=== PATIENT | female | born 2000 | race Caucasian/White ===

== ENCOUNTER 2022-02-06 11:42 | Emergency (ER) | payer OTHER, SELFPAY ==
[2022-02-06 12:00] VITALS: BP 123/70; PULSE 82; RESP 18; TEMP 36.9; O2SAT 100
--- NOTE | 2022-02-06 12:49 | ED.FEMALEGU ---
HPI - Female Genitourinary General Chief complaint: Urogenital-Female Stated complaint: Possible UTI History of Present Illness HPI Narrative: This is a 21-year-old female who presented to our urgent care with complaints urinary tract infection symptoms such as burning frequency and urgency that she has had since Thursday. Patient had not taken in the home to relieve her symptoms. Patient able to tolerate all meals , slept well and ambulate at baseline. Patient denies SOB, CP, palpitation, extremity numbness, lightheadness, dizziness, constipation, diarrhea, or chills or fever. Patient agree that they are ready for discharge and discharge plan. Related Data Allergies Allergy/AdvReac Type Severity Reaction Status Date / Time No Known Allergies Allergy Verified 02/06/22 11:51 Review of Systems Review of Systems: A 14 organ system Review of Systems was performed and pertinent positives included in the HPI, otherwise remaining ROS is negative. Exam Narrative: GENERAL: This is a well-nourished, well-developed patient, in no apparent distress. HEAD: normocephalic, atraumatic. EYES: PERRL. Sclera clear/white. Vision is grossly intact. EARS: External ears normal, auditory canals clear and without drainage, TMs normal without perforation. Hearing grossly intact. NOSE: External nose normal with no obvious nasal discharge, nares without redness, no rhinorrhea. THROAT: Mucous membranes moist, posterior pharynx clear. NECK: Neck supple, non-tender without lymphadenopathy, masses or thyromegaly. CARDIOVASCULAR: Regular rate and rhythm without murmurs, gallops, or rubs. RESPIRATORY: Clear to auscultation. Breath sounds equal bilaterally. No wheezes, rales, or rhonchi. GASTROINTESTINAL: Abdomen soft, non-tender, nondistended. Bowel sounds are active. No hepato-splenomegaly, or palpable masses. No guarding. SKIN: warm, intact with no suspicious lesions or rash, good texture and turgor. NEURO: awake, alert, and oriented to person, place and time. There were no obvious focal neurologic abnormalities. EXTREMITIES: Normal range of motion. No edema. No calf tenderness. Course Course Emergency Course: [facility] Level [facility] Care: Express Care Visit Vital Signs Vital signs: Vital Signs Temperature 98.4 F 02/06/22 12:00 Pulse Rate 82 02/06/22 12:00 Respiratory Rate 18 02/06/22 12:00 Blood Pressure 123/70 02/06/22 12:00 Pulse Oximetry 100 02/06/22 12:00 Oxygen Delivery Room Air 02/06/22 12:00 Temperature 98.4 F 02/06/22 12:00 Pulse Rate 82 02/06/22 12:00 Respiratory Rate 18 02/06/22 12:00 Blood Pressure 123/70 02/06/22 12:00 Pulse Oximetry 100 02/06/22 12:00 Oxygen Delivery Room Air 02/06/22 12:00 MDM - Female Genitourinary Differential Diagnosis Differential diagnosis: Likely urinary tract infection, bacterial vaginosis and vaginitis Lab Data Labs: Urine Glucose Negative Reference Range: Negative Urine Bilirubin Negative Reference Range: Negative Urine Ketone Negative Reference Range: Negative Urine Specific [place] 1.015 Reference Range:1.001-1.035 Urine Blood 3+ Reference Range: Negative * * Urine pH 7.0 Reference Range: 5.0-9.0 Urine Protein Negative Reference Range: Negative Urine Urobilinogen 0.2 Reference Range: 0.2-1.0 Urine Nitrate Negative
== END 2022-02-06 12:46 | disposition home or self-care (01) ==
PROVIDERS: Emergency Provider Nurse Practitioner
DX: N39.0 Urinary tract infection, site not specified (principal)
CPT/HCPCS: 81003; 87086; 99213; G0463